=== PATIENT | male | born 1990 | race African-American/Black ===

== ENCOUNTER 2018-11-06 06:37 | Emergency (ER) | payer OTHER ==
[2018-11-06 07:15] VITALS: BP 124/74; PULSE 78; TEMP 97.5; BMI 28.0
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
== END 2018-11-06 08:32 | disposition home or self-care (01) ==
LOC: JER 06:37
DX: S80.02XA Contusion of left knee, initial encounter (principal); Y08.02XA Assault by strike by baseball bat, initial encounter; Y93.89 Activity, other specified; Y92.89 Other specified places as the place of occurrence of the external cause; Y99.8 Other external cause status
CPT/HCPCS: 73562-TC-LT-FY; 73590-TC-LT-FY; 99281-25